=== PATIENT | female | born 1945 | race Caucasian/White ===

== ENCOUNTER 2018-10-21 20:41 | Inpatient (IN) ==
--- NOTE | 2018-10-21 21:04 | ED ---
HPI General Chief complaint: Fall Stated complaint: Fall / [facility] / tx [facility] Time Seen by Provider: 10/21/18 20:58 History of Present Illness HPI narrative: This is a 73-year-old female with history of blindness, hypertension, diabetes, coronary artery disease, on Plavix, was transported here from [facility] in [place] for admission to the trauma service. The patient reports that 2 days ago she was getting ready for bed, walking in her bedroom. She does not recall what happened but she reports that she woke up the next morning on the ground. She does not remember feeling dizzy or lightheaded or having any chest pain or breath. She does not recall tripping. She does not believe that she slept in her bed as the bed was made up the next morning. She reports that since then she has had some foggy sensation in her head, headaches as well as right-sided rib soreness. She was seen at [facility] today were she had CT imaging of brain as well as rib x-rays which revealed a subarachnoid hemorrhage as well as right-sided rib fractures. She was accepted in transfer by trauma surgeon Dr. Godinez. On my review of systems she is complaining of right-sided rib soreness. She is denying any headache. She does endorse some neck soreness. She is denying any back pain, shortness of breath, abdominal pain, nausea or vomiting, acute numbness or tingling or weakness in extremities. She has no other complaints at this time. Related Data Home Medications Medication Instructions Recorded Confirmed aspirin [Aspirin Low Dose] 81 mg PO DAILY 10/21/18 10/21/18 calcium carbonate [Calcium 600] 600 mg PO EVERY OTHER DAY 10/21/18 10/21/18 clopidogrel [Plavix] 75 mg PO DAILY 10/21/18 10/21/18 insulin aspart U-100 [Novolog 1 sliding scale dose SUBCUT UD 10/21/18 10/21/18 PenFill U-100 Insulin] isosorbide mononitrate 30 mg PO DAILY 10/21/18 10/21/18 latanoprost 1 drp OPHTHALMIC (EYE) QPM 10/21/18 10/21/18 levothyroxine [Synthroid] 75 mcg PO DAILY 10/21/18 10/21/18 metoprolol succinate 50 mg PO DAILY 10/21/18 10/21/18 tyqrzktt-[id number]-fungeyp fum 10/21/18 10/21/18 [Multi Vitamin] nitroglycerin [Nitrostat] 0.4 mg SUBLINGUAL Q5-15M PRN 10/21/18 10/21/18 ramipril 2.5 mg PO DAILY 10/21/18 10/21/18 ranitidine HCl 300 mg PO DAILY 10/21/18 10/21/18 simvastatin 40 mg PO QPM 10/21/18 10/21/18 timolol 1 drp OPHTHALMIC (EYE) BID 10/21/18 10/21/18 Allergies Allergy/AdvReac Type Severity Reaction Status Date / Time Sulfa (Sulfonamide Allergy allergy Verified 10/21/18 21:00 Antibiotics) Review of Systems ROS: all other systems reviewed are negative [facility] Medical History Medical History HTN (hypertension) (Acute) Hypothyroid (Acute) Type 1 diabetes (Acute) Surgical History Surgical History H/O heart artery stent (Acute) H/O tubal ligation (Acute) S/P triple vessel bypass (Acute) Family History Family History Other Medical history non-contributory Social History Social History Substance History: No History of Abuse Smoking Status: Never smoker How Often Do You Have a Drink Containing Alcohol: Monthly or less Recent Travel in [facility] within the Last 8 Weeks: No Recent Out of Country Travel within the Last 8 Weeks: No Immunization History Tetanus Immunization: <5 Years Exam Narrative Exam Narrative: GENERAL: Pleasant well-developed well-nourished female no acute distress. A cervical collar has been ordered and is being applied SKIN: Warm and dry. There is some right-sided periorbital facial ecchymosis. HEAD: Skin as noted above. Normocephalic. EYES: Left pupil deformity noted. Right corneal haziness noted. These are chronic. ENT: No nasal bleeding or discharge. Mucous membranes pink and moist. There is no tenderness to palpation of the facial bones. NECK: Trachea midline. No JVD. CARDIOVASCULAR: Regular rate and rhythm. No murmur appreciated. RESPIRATORY: No accessory muscle use. Clear to auscultation. Breath sounds equal bilaterally. GASTROINTESTINAL: Abdomen soft, non-tender, nondistended. Hepatic and splenic margins not palpable. MUSCULOSKELETAL: No obvious deformities. There is tenderness to palpation to the right lower rib cage as well as to the cervical spine. NEUROLOGICAL: Awake and alert. No obvious cranial nerve deficits. Motor grossly within normal limits. Normal speech. PSYCHIATRIC: Appropriate mood and affect; insight and judgment normal. Course Initial Documented Vital Signs Pulse Rate 64 10/21/18 20:54 Respiratory Rate 24 10/21/18 20:54 Blood Pressure 149/62 H 10/21/18 20:54 Pulse Oximetry 98 10/21/18 20:54 Last Documented Vital Signs Pulse Rate 61 10/22/18 07:12 Respiratory Rate 17 10/22/18 07:12 Blood Pressure 120/50 L 10/22/18 07:12 Pulse Oximetry 94 L 10/22/18 07:12 Medical Decision Making MDM Narrative Medical decision making narrative: The patient was placed on ECG monitoring pulse oximetry. IV established, lab work obtained, EKG ordered. I discussed with Dr. Godinez who is the accepting trauma surgeon. He is agreeable with obtaining CT imaging of the cervical spine as well as a repeat chest x-ray and a repeat CT of the brain. Neurosurgery consultation. I discussed with Dr Nguyen who would be happy to see the patient in consultation , recommends Keppra 500 mg twice a day for seizure prophylaxis. Agreeable with admission to the [facility]. I reviewed the patient's records from [facility], apparently the patient has been having intermittent hypoglycemic events since her insulin pump was discontinued during the late September hospitalization in [facility]. She is currently on NovoLog 4 times a week. Blood glucose 193 currently. 2300: At the end of my shift the patient was signed out to Dr. William to follow- up in the CT imaging prior to admission. I spoke to Dr. Blood regarding this patient's case after the CT scan of the head and neck were resulted. We discussed the patient's history, examination findings, and imaging results. The patient's chest x-ray at this facility revealed rib fractures that appeared to be old. The patient CT scan of the brain showed The CT scan of the brain showed senescent changes, mild to moderate small vessel ischemic white matter demyelinization, no acute intracranial abnormality, CT scan of the C-spine showed no acute fracture or subluxation. Degenerative spondylosis of the lower cervical spine is noted. Given the patient's possible syncope and hypoglycemic events, he recommended that the patient be admitted to the medical service and he cleared the patient from a trauma surgery standpoint. The patient's case including history, pertinent physical examination findings, and laboratory studies were discussed with Dr. Harrison, the hospitalist. It was agreed that the patient would be admitted to the hospitalist service. The patient's results were discussed with the patient, including the plan of care. I explained that further testing and/ or monitoring is indicated based on the patient's history, examination, and/ or laboratory findings. Therefore, I recommended admission for additional evaluation. The patient expressed understanding and was agreeable with this plan. The patient was admitted to the hospital in stable condition and sent to a bed under the care of the [facility] service. Medical Screen Exam Complete: Yes Emergency Medical Condition: Yes Differential Diagnosis Differential Diagnosis: Subarachnoid hemorrhage, rib fracture, pneumothorax, hemothorax, syncope, electrolyte abnormality, dehydration, seizure Lab Data Result diagrams: 10/21/18 21:14 10/21/18 21:14 Lab Results 10/21/18 10/21/18 10/21/18 Range/Units 21:14 21:14 21:14 WBC 7.5 (4.0-11.0) th/mm3 RBC 3.20 L (4.00-5.30) mil/mm3 Hgb 11.2 L (11.6-15.3) gm/dL Hct 33.3 L (35.0-46.0) % MCV 104.1 H (80.0-100.0) fL MCH 35.1 H (27.0-34.0) pg MCHC 33.7 (32.0-36.0) % RDW 13.1 (11.6-17.2) % Plt Count 348 (150-450) th/mm3 MPV 9.0 (7.0-11.0) fL Neut % (Auto) 69.6 (16.0-70.0) % Lymph % (Auto) 18.6 (9.0-44.0) % Sheridan % (Auto) 9.5 H (0.0-8.0) % Eos % (Auto) 1.5 (0.0-4.0) % Baso % (Auto) 0.8 (0.0-2.0) % Neut # (Auto) 5.2 (1.8-7.7) th/mm3 Lymph # (Auto) 1.4 (1.0-4.8) th/mm3 Sheridan # (Auto) 0.7 (0.0-0.9) th/mm3 Eos # (Auto) 0.1 (0.0-0.4) th/mm3 Baso # (Auto) 0.1 (0.0-0.2) th/mm3 WBC Differential . Differential Comment Auto diff final PT 10.0 (9.8-11.6) sec INR 1.0 Ratio APTT 25.4 (23.4-31.7) sec Sodium 133 L (136-145) meq/L Potassium 5.1 (3.5-5.1) meq/L Chloride 101 (98-107) meq/L Carbon Dioxide 24.9 (21.0-32.0) meq/L Anion Gap 7 (5-15) meq/L BUN 30 H (7-18) mg/dL Creatinine 1.28 H (0.50-1.00) mg/dL Estimated GFR 41 L (>89) mL/min POC Glucose (68-110) mg/dl Random Glucose 193 H (74-106) mg/dL Calcium 8.7 (8.5-10.1) mg/dL Total Bilirubin 0.3 (0.2-1.0) mg/dL AST 47 H (15-37) U/L ALT 47 (10-53) U/L Alkaline Phosphatase 75 (45-117) U/L Total Creatine Kinase 284 H (26-192) U/L CK-MB (CK-2) 10.4 H (0.5-3.6) ng/mL CK-MB (CK-2) % 3.7 (0.0-4.0) % Troponin I Less than 0.02 L (0.02-0.05) ng/mL Total Protein 7.5 (6.4-8.2) g/dL Albumin 3.3 L (3.4-5.0) g/dL Blood Type Blood Type Recheck Antibody Screen 10/21/18 10/21/18 10/22/18 Range/Units 21:14 21:23 02:51 WBC (4.0-11.0) th/mm3 RBC (4.00-5.30) mil/mm3 Hgb (11.6-15.3) gm/dL Hct (35.0-46.0) % MCV (80.0-100.0) fL MCH (27.0-34.0) pg MCHC (32.0-36.0) % RDW (11.6-17.2) % Plt Count (150-450) th/mm3 MPV (7.0-11.0) fL Neut % (Auto) (16.0-70.0) % Lymph % (Auto) (9.0-44.0) % Sheridan % (Auto) (0.0-8.0) % Eos % (Auto) (0.0-4.0) % Baso % (Auto) (0.0-2.0) % Neut # (Auto) (1.8-7.7) th/mm3 Lymph # (Auto) (1.0-4.8) th/mm3 Sheridan # (Auto) (0.0-0.9) th/mm3 Eos # (Auto) (0.0-0.4) th/mm3 Baso # (Auto) (0.0-0.2) th/mm3 WBC Differential Differential Comment PT (9.8-11.6) sec INR Ratio APTT (23.4-31.7) sec Sodium (136-145) meq/L Potassium (3.5-5.1) meq/L Chloride (98-107) meq/L Carbon Dioxide (21.0-32.0) meq/L Anion Gap (5-15) meq/L BUN (7-18) mg/dL Creatinine (0.50-1.00) mg/dL Estimated GFR (>89) mL/min POC Glucose 221 H (68-110) mg/dl Random Glucose (74-106) mg/dL Calcium (8.5-10.1) mg/dL Total Bilirubin (0.2-1.0) mg/dL AST (15-37) U/L ALT (10-53) U/L Alkaline Phosphatase (45-117) U/L Total Creatine Kinase 194 H (26-192) U/L CK-MB (CK-2) 6.5 H (0.5-3.6) ng/mL CK-MB (CK-2) % 3.4 (0.0-4.0) % Troponin I Less than 0.02 L (0.02-0.05) ng/mL Total Protein (6.4-8.2) g/dL Albumin (3.4-5.0) g/dL Blood Type O Positive Blood Type Recheck Required Antibody Screen Negative 10/22/18 Range/Units 04:24 WBC (4.0-11.0) th/mm3 RBC (4.00-5.30) mil/mm3 Hgb (11.6-15.3) gm/dL Hct (35.0-46.0) % MCV (80.0-100.0) fL MCH (27.0-34.0) pg MCHC (32.0-36.0) % RDW (11.6-17.2) % Plt Count (150-450) th/mm3 MPV (7.0-11.0) fL Neut % (Auto) (16.0-70.0) % Lymph % (Auto) (9.0-44.0) % Sheridan % (Auto) (0.0-8.0) % Eos % (Auto) (0.0-4.0) % Baso % (Auto) (0.0-2.0) % Neut # (Auto) (1.8-7.7) th/mm3 Lymph # (Auto) (1.0-4.8) th/mm3 Sheridan # (Auto) (0.0-0.9) th/mm3 Eos # (Auto) (0.0-0.4) th/mm3 Baso # (Auto) (0.0-0.2) th/mm3 WBC Differential Differential Comment PT (9.8-11.6) sec INR Ratio APTT (23.4-31.7) sec Sodium (136-145) meq/L Potassium (3.5-5.1) meq/L Chloride (98-107) meq/L Carbon Dioxide (21.0-32.0) meq/L Anion Gap (5-15) meq/L BUN (7-18) mg/dL Creatinine (0.50-1.00) mg/dL Estimated GFR (>89) mL/min POC Glucose 315 H (68-110) mg/dl Random Glucose (74-106) mg/dL Calcium (8.5-10.1) mg/dL Total Bilirubin (0.2-1.0) mg/dL AST (15-37) U/L ALT (10-53) U/L Alkaline Phosphatase (45-117) U/L Total Creatine Kinase (26-192) U/L CK-MB (CK-2) (0.5-3.6) ng/mL CK-MB (CK-2) % (0.0-4.0) % Troponin I (0.02-0.05) ng/mL Total Protein (6.4-8.2) g/dL Albumin (3.4-5.0) g/dL Blood Type Blood Type Recheck Antibody Screen Imaging Data Radiologist's impression: Cervical Spine CT 10/21/18 21:10 CONCLUSION: 1. No acute fracture or subluxation. 2. Degenerative spondylosis of the lower cervical spine. Chest X-Ray 10/21/18 21:10 CONCLUSION: Mild bibasilar atelectasis. Head CT 10/21/18 21:10 CONCLUSION: 1. Senescent changes with mild to moderate small vessel ischemic white matter demyelination. 2. No acute intracranial abnormality. . Discharge Plan Discharge Disposition Patient Disposition: ED Admit(ED Internal Use Only) Discharge Condition Condition: Stable Discharge Order Discharge Orders: ED Use Only Admit Order (Routine); Ordered 10/22/18 Ordered By: Yolanda William Discharge Details Diagnosis: Subarachnoid hemorrhage, Fracture, ribs, Syncope, Hypoglycemia Physicians Team ED Provider: Yolanda William ED Midlevel Provider: Sunil Peña Primary Care Provider: Primary Care Emerald Ralph Attending Provider: Casper Currie Other Providers: Bryce Nguyen Interventions Interventions: Vital Signs Last Done: 10/22/18 06:00 Status ED Status: Admitted Observation Patient
[2018-10-21] MEDS ORDERED: Morphine Sulfate Inj 2 MG/ML Vial IV.PUSH ONE (21:37)
[2018-10-21 21:41] LABS: Baso # (Auto) 0.1 th/mm3 (0.0-0.2); Baso % (Auto) 0.8 % (0.0-2.0); Eos # (Auto) 0.1 th/mm3 (0.0-0.4); Eos % (Auto) 1.5 % (0.0-4.0); Hematocrit 33.3 % (35.0-46.0); Hemoglobin 11.2 gm/dL (11.6-15.3); Lymph # (Auto) 1.4 th/mm3 (1.0-4.8); Lymph % (Auto) 18.6 % (9.0-44.0); Mean Corpuscular HGB Conc 33.7 % (32.0-36.0); Mean Corpuscular Hemoglobin 35.1 pg (27.0-34.0); Mean Corpuscular Volume 104.1 fL (80.0-100.0); Mono # (Auto) 0.7 th/mm3 (0.0-0.9); Mono % (Auto) 9.5 % (0.0-8.0); Neut # (Auto) 5.2 th/mm3 (1.8-7.7); Neut % (Auto) 69.6 % (16.0-70.0); Platelet Count 348 th/mm3 (150-450); Red Cell Distribution Width 13.1 % (11.6-17.2); White Blood Count 7.5 th/mm3 (4.0-11.0)
--- NOTE | 2018-10-21 21:44 | XR ---
EXAM DATE: 10/21/2018 9:39 PM EST AGE/SEX: 73 years / Female INDICATIONS: Fall 2 days ago, rib pain and chest pain. CLINICAL DATA: This is the patient's initial encounter. Patient reports that signs and symptoms have been present for 2 days and indicates a pain score of 10/10. MEDICAL/SURGICAL HISTORY: None. None. COMPARISON: No prior exams available for comparison. FINDINGS: Mild atelectasis seen of both lung bases. No pleural effusion or pneumothorax demonstrated. Heart size within normal limits. Patient has had previous median sternotomy. Several nonacute appeari ng right rib fractures are demonstrated. I don't clearly see an acute rib fracture. CONCLUSION: Mild bibasilar atelectasis. Electronically signed by: Domingo Meeks MD Board Certified Radiologist 10/21/2018 9:42 PM EST
[2018-10-21] MEDS ORDERED: Morphine Inj 4 MG/ML Vial IV.PUSH ONE (21:45)
[2018-10-21 21:55] LABS: Activated Partial Thrombo Time 25.4 sec (23.4-31.7); Albumin 3.3 g/dL (3.4-5.0); Anion Gap 7 meq/L (5-15); Aspartate Aminotransferase 47 U/L (15-37); Blood Urea Nitrogen 30 mg/dL (7-18); Calcium 8.7 mg/dL (8.5-10.1); Carbon Dioxide 24.9 meq/L (21.0-32.0); Chloride 101 meq/L (98-107); Glomerular Filtration Rate 41 mL/min (>89); Glucose,Random 193 mg/dL (74-106); Potassium 5.1 meq/L (3.5-5.1); Sodium 133 meq/L (136-145)
[2018-10-21 21:57] LABS: Alanine Aminotransferase 47 U/L (10-53)
[2018-10-21] MEDS ORDERED: levETIRAcetam 500 MG Tablet PO ONE (21:59)
[2018-10-21 22:00] LABS: Alkaline Phosphatase 75 U/L (45-117); Creatine Kinase 284 U/L (26-192); Total Protein 7.5 g/dL (6.4-8.2)
[2018-10-21 22:12] LABS: CKMB Percent 3.7 % (0.0-4.0); Creatine Kinase MB 10.4 ng/mL (0.5-3.6)
[2018-10-21] MEDS ORDERED: Sodium Chlor 0.9% Inj 500 ML IV.SIG SCH (23:00)
--- NOTE | 2018-10-21 23:52 | CT ---
EXAM DATE: 10/21/2018 11:42 PM EST AGE/SEX: 73 years / Female INDICATIONS: Head pain post fall two days. CLINICAL DATA: This is the patient's initial encounter. Patient reports that signs and symptoms have been present for 1 day and indicates a pain score of 5/10. MEDICAL/SURGICAL HISTORY: . CABG. RADIATION DOSE: 49.61 CTDI (mGy) COMPARISON: No prior exams available for comparison. TECHNIQUE: CT of the head without contrast. Using automated exposure control and adjustment of the mA and/or kV according to patient size, radiation dose was kept as low as reasonably achievable to ob tain optimal diagnostic quality images. DICOM format image data is available electronically for revi ew and comparison. FINDINGS: Cerebrum: Mild diffuse cerebral volume loss. The ventricles are normal for age. Mild to moderate per iventricular white matter hypodensities. No evidence of midline shift, mass lesion, hemorrhage or acu te infarction. No extraaxial fluid collections are seen. Posterior Fossa: The cerebellum and brainstem are intact. The 4th ventricle is midline. The cerebe llopontine angle is unremarkable. Extracranial: The visualized portion of the orbits is intact. Skull: The calvaria is intact. No evidence of skull fracture. CONCLUSION: 1. Senescent changes with mild to moderate small vessel ischemic white matter demyelination. 2. No acute intracranial abnormality. . Electronically signed by: Jr Simpson MD Board Certified Radiologist 10/21/2018 11:51 PM MONTRELL Gordillo
--- NOTE | 2018-10-21 23:54 | CT ---
EXAM DATE: 10/21/2018 11:42 PM EST AGE/SEX: 73 years / Female INDICATIONS: Head pain post fall two days ago. CLINICAL DATA: This is the patient's initial encounter. Patient reports that signs and symptoms have been present for 1 day and indicates a pain score of 5/10. MEDICAL/SURGICAL HISTORY: . CABG. RADIATION DOSE: 42.61 CTDI (mGy) COMPARISON: No prior exams available for comparison. TECHNIQUE: Contiguous axial images were obtained using helical multirow detector technique. The vol umetric data was post-processed with multiplanar reconstruction in oblique axial, sagittal, and coron al planes. Using automated exposure control and adjustment of the mA and/or kV according to patient s ize, radiation dose was kept as low as reasonably achievable to obtain optimal diagnostic quality faheem ges. DICOM format image data is available electronically for review and comparison. FINDINGS: OSSEOUS STRUCTURES: Vertebral body heights are maintained. Osseous structures are intact without evid ence for acute bony fracture. Dens is intact. ALIGNMENT: Sagittal alignment is maintained. There is a normal C1-2 relationship. Facets are normal ly aligned. SOFT TISSUES: There is no significant prevertebral soft tissue hematoma. No significant cervical bev nopathy or gross mass. The thyroid appears unremarkable. Visualized lung apices are clear without pn eumothorax. ADDITIONAL FINDINGS: Multilevel degenerative spondylosis of the lower cervical spine most notably at C5-6 and C6-7 with disc space narrowing and disc osteophytes. Bony central canal is patent. Mild ely ateral bony neural foraminal narrowing at C6-7. Multilevel facet hypertrophy. CONCLUSION: 1. No acute fracture or subluxation. 2. Degenerative spondylosis of the lower cervical spine. Electronically signed by: Jr Simpson MD Board Certified Radiologist 10/21/2018 11:53 PM MONTRELL Gordillo
[2018-10-22] MEDS ORDERED: Bisacodyl 10 MG Supp RECTAL PRN (02:15)
--- NOTE | 2018-10-22 02:26 | P.HPIM ---
History of Present Illness Service: [facility] Primary Care Physician: No Primary Care Physician Chief Complaint: [facility] History of Present Illness: 73-year-old female with a history of blindness, hypertension, diabetes type 1, CAD on Plavix was a transfer from [facility] in [place] for admission as a trauma that was accepted by Dr. Wynn. When patient arrived she was declared to not be a trauma and admitted to [facility]. Patient states she fell 2 days ago when she was getting ready for bed, and woke up on the ground. She denies any dizziness, headaches, chest pain or shortness of breath prior to the fall she states she has been having episodes of hypoglycemia for some time and states she goes very low and then very high. She doses based on a sliding scale and depending on the carbohydrates she consumes. Last year she had an insulin pump that was removed due to hypoglycemia episodes. She has an appointment on Sunday with a new folding machine tender for her diabetes. She states today she was out with her brother when she became confused and had trouble finding words. She is currently alert and oriented but states she still has times where she has trouble finding her words. She denies any weakness in any extremities. No chest pain or shortness of breath noted she is complaining of constant throbbing right-sided pain to her ribs. X-rays for a hospital shows that she has right-sided rib fractures. CT of the head was also done at [facility] which showed a subarachnoid hemorrhage although a CT repeated in our ER that does not show any hemorrhage. Review of Systems Review of Systems: all other systems reviewed are negative [facility] Medical History Medical History HTN (hypertension) (Acute) Hypothyroid (Acute) Type 1 diabetes (Acute) Surgical History Surgical History H/O heart artery stent (Acute) H/O tubal ligation (Acute) S/P triple vessel bypass (Acute) Family History Family History Other Medical history non-contributory Social History Social History Substance History: No History of Abuse Smoking Status: Never smoker How Often Do You Have a Drink Containing Alcohol: Monthly or less Recent Travel in [facility] within the Last 8 Weeks: No Recent Out of Country Travel within the Last 8 Weeks: No Immunization History Tetanus Immunization: <5 Years Medications and Allergies Allergies Allergy/AdvReac Type Severity Reaction Status Date / Time Sulfa (Sulfonamide Allergy allergy Verified 10/21/18 21:00 Antibiotics) Home Medications Medication Instructions Recorded Confirmed Type aspirin [Aspirin Low Dose] 81 mg PO DAILY 10/21/18 10/21/18 History calcium carbonate [Calcium 600] 600 mg PO EVERY OTHER DAY 10/21/18 10/21/18 History clopidogrel [Plavix] 75 mg PO DAILY 10/21/18 10/21/18 History insulin aspart U-100 [Novolog 1 sliding scale dose SUBCUT UD 10/21/18 10/21/18 History PenFill U-100 Insulin] isosorbide mononitrate 30 mg PO DAILY 10/21/18 10/21/18 History latanoprost 1 drp OPHTHALMIC (EYE) QPM 10/21/18 10/21/18 History levothyroxine [Synthroid] 75 mcg PO DAILY 10/21/18 10/21/18 History metoprolol succinate 50 mg PO DAILY 10/21/18 10/21/18 History [id number] fum 10/21/18 10/21/18 History [Multi Vitamin] nitroglycerin [Nitrostat] 0.4 mg SUBLINGUAL Q5-15M PRN 10/21/18 10/21/18 History ramipril 2.5 mg PO DAILY 10/21/18 10/21/18 History ranitidine HCl 300 mg PO DAILY 10/21/18 10/21/18 History simvastatin 40 mg PO QPM 10/21/18 10/21/18 History timolol 1 drp OPHTHALMIC (EYE) BID 10/21/18 10/21/18 History Active Medications: Active Medications Sodium Chloride (Ns Flush) 2 ml IV.FLUSH PRN PRN PRN Reason: FLUSH AFTER USING IV ACCESS Physical Exam Vital signs: Vital Signs 10/21/18 20:54 10/21/18 21:00 10/21/18 23:20 Pulse Rate 64 64 62 Respiratory Rate 24 24 22 Blood Pressure 149/62 H 149/62 H 157/65 H Pulse Oximetry 98 98 98 10/22/18 02:19 Pulse Rate 58 L Respiratory Rate 26 H Blood Pressure 147/61 H Pulse Oximetry 99 Intake & Output 10/21/18 10/21/18 10/22/18 06:59 18:59 06:59 Intake Total 500 / 500 Balance 500 / 500 Weight 54.885 kg Intake: IV 500 / 500 NS Inj 500 ML @ 1000 mls/hr IV. 500 / 500 SIG BOLUS [facility] Rx#:[id number] Narrative: GENERAL: well nourished patient in no acute distress SKIN: Warm and dry. right eye ecchymotic HEAD: Normocephalic. EYES: No scleral icterus. No injection or drainage. Pupils PERRLA NECK: Supple, trachea midline. No JVD or lymphadenopathy. CARDIOVASCULAR: Regular rate and rhythm without murmurs, gallops, or rubs. RESPIRATORY: Breath sounds equal bilaterally. No accessory muscle use. GASTROINTESTINAL: Abdomen soft, non-tender, nondistended. MUSCULOSKELETAL: No cyanosis, or edema. No weakness. Neurological: A&O x3, moves all follows commands, no confusion. Results Labs CBC & Chem 7: 10/21/18 21:14 10/21/18 21:14 Imaging Impressions Cervical Spine CT 10/21/18 21:10 CONCLUSION: 1. No acute fracture or subluxation. 2. Degenerative spondylosis of the lower cervical spine. Chest X-Ray 10/21/18 21:10 CONCLUSION: Mild bibasilar atelectasis. Head CT 10/21/18 21:10 CONCLUSION: 1. Senescent changes with mild to moderate small vessel ischemic white matter demyelination. 2. No acute intracranial abnormality. . Caprini VTE Risk Assessment Caprini VTE Risk Assessment: Moderate/High Risk (score >= 2) Caprini Risk Assessment Model: Point Value = 1 Point Value = 2 Point Value = 3 Point Value = 5 Age 41-60 Minor surgery BMI > 25 kg/m2 Swollen legs Varicose veins or History of unexplained or recurrent spontaneous Oral contraceptives or hormone replacement Sepsis (< 1 month) Serious lung disease, including pneumonia (< 1 month) Abnormal pulmonary function Acute myocardial infarction Congestive heart failure (< 1 month) History of inflammatory bowel disease Medical patient at bed rest Age 61-74 Arthroscopic surgery Major open surgery (> 45 min) Laparoscopic surgery (> 45 min) Malignancy Confined to bed (> 72 hours) Immobilizing plaster cast Central venous access Age >= 75 History of VTE Family history of VTE Factor V Leiden Prothrombin [id number] Lupus anticoagulant Anticardiolipin antibodies Elevated serum homocysteine Heparin-induced thrombocytopenia Other congenital or acquired thrombophilia Stroke (< 1 month) Elective arthroplasty Hip, pelvis, or leg fracture Acute spinal cord injury (< 1 month) Prophylaxis Regimen: Total Risk Factor Score Risk Level Prophylaxis Regimen 0-1 Low Early ambulation 2 Moderate Order ONE of the following: *Sequential Compression Device (SCD) *Heparin 5000 units SQ BID 3-4 Higher Order ONE of the following medications: *Heparin 5000 units SQ TID *Enoxaparin/Lovenox 40 mg SQ daily (WT < 150 kg, CrCl > 30 mL/min) *Enoxaparin/Lovenox 30 mg SQ daily (WT < 150 kg, CrCl > 10-29 mL/min) *Enoxaparin/Lovenox 30 mg SQ BID (WT < 150 kg, CrCl > 30 mL/min) AND/OR *Sequential Compression Device (SCD) 5 or more Highest Order ONE of the following medications: *Heparin 5000 units SQ TID (Preferred with Epidurals) *Enoxaparin/Lovenox 40 mg SQ daily (WT < 150 kg, CrCl > 30 mL/min) *Enoxaparin/Lovenox 30 mg SQ daily (WT < 150 kg, CrCl > 10-29 mL/min) *Enoxaparin/Lovenox 30 mg SQ BID (WT < 150 kg, CrCl > 30 mL/min) AND *Sequential Compression Device (SCD) Assessment and Plan Plan 73-year-old female with a history of blindness, hypertension, diabetes type 1, CAD on Plavix was a transfer from [facility] in [place] for admission as a trauma s/p fall. Syncope, likely secondary to Hypoglycemia in a type 1 diabetic -2d echo ordered -Accu checks Q4h -Patient will need follow up with endocrine, hopefully can keep her Sunday appointment Fall, Questionable SAH Head CT reviewed and shows Senescent changes with mild to moderate small vessel ischemic white matter demyelination -Consult neuro surgery for evaluation -neuro checks -PT eval -Resume asa and plavix if ok with neurosurgery Hypertension, chronic -Resume home medications -Monitor vitals Hypothyroid, chronic -Resume home medications DVT prophylaxis: SCDs
[2018-10-22] MEDS: Sod Chloride 0.9% Inj 1,000 ML IV.CONT SCH ×3 (03:09→23:43)
[2018-10-22] MEDS: Acetaminophen 325 MG Tablet PO PRN ×2 (03:12→13:02)
[2018-10-22 03:15] LABS: Creatine Kinase 194 U/L (26-192)
[2018-10-22 03:28] LABS: CKMB Percent 3.4 % (0.0-4.0); Creatine Kinase MB 6.5 ng/mL (0.5-3.6)
[2018-10-22] MEDS ORDERED: Dextrose 50% in Water 50 ML Vial IV.PUSH PRN (04:58)
[2018-10-22] MEDS: Levothyroxine 75 MCG Tablet PO SCH (07:12)
[2018-10-22] MEDS: Insulin NovoLOG Aspart Correctional Sugar Inj SQ SCH ×4 (08:44→23:42)
[2018-10-22] MEDS: Famotidine 20 MG Tablet PO SCH ×2 (08:45→23:42)
[2018-10-22] MEDS: Isosorbide Mononitrate 30 MG ER 24HR Tablet (Imdur) PO SCH (10:19)
--- NOTE | 2018-10-22 11:35 | MB ---
cc: Bryce Nguyen MD DATE: 10/22/2018 Report of an initial comprehensive floor inpatient neurosurgical consultation. The patient was interviewed, examined, the documentation, laboratory evaluation, and imaging were reviewed. CHIEF COMPLAINT: Fall and a head injury. HISTORY OF PRESENT ILLNESS: This is a 73-year-old white female who apparently was a transfer from [facility] in [place] for admission as a trauma. When she arrived here at [place] she was cleared not to be a trauma and admitted to the hospitalist service. In any case, the patient states that she fell 2 days ago and apparently suffered a syncopal episode. She denies dizziness or headaches, chest pain or shortness of breath prior to the fall. She states that she has been having episodes of hypoglycemia. In any case, she was having some trouble with confusion and word finding as well as some right-sided rib pain. Because of this, her family brought her into the emergency department at [facility] in [place]. She had a CT scan of the head done without contrast there, which apparently showed a small subarachnoid hemorrhage. X-rays there revealed rib fractures on the right, she was transferred to [place]. She has undergone a followup CT scan of the head done without contrast here which reveals no sign of subarachnoid hemorrhage, nor hydrocephalus, nor pneumocephalus, nor skull fracture. She has mild atrophy. She also underwent a CT scan of the cervical spine done without contrast, which reveals spondylitic changes without fracture or subluxation or significant stenosis. PAST MEDICAL HISTORY: Remarkable for history of hypertension, hypothyroidism, type 1 diabetes, heart disease with coronary artery disease. PAST SURGICAL HISTORY: Remarkable for cardiac stenting and tubal ligation as well as coronary bypass graft surgery and a hysterectomy. MEDICATIONS: Include: 1. Nitroglycerin. 2. Isosorbide. 3. Aspirin. 4. Ranitidine. 5. Metoprolol. 6. Calcium carbonate . 7. Timolol. 8. Latanoprost. 9. Ramipril. 10. Insulin. 11. Simvastatin. 12. Levothyroxine. 13. Clopidogrel. 14. Multivitamins. ALLERGIES: SHE HAS ALLERGIES TO SULFA. SOCIAL HISTORY: She is retired. She is independent. She denies a history of illicit drug use, ethanol abuse or cigarette smoking. FAMILY HISTORY: Remarkable for history of heart disease and diabetes. REVIEW OF SYSTEMS: The patient denies any weight loss. She denies any fever, chills or night sweats. She denies any headaches. 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 She denies any change in her thinking or memory or speech or swallowing or chest pain or shortness of breath or abdominal pain or change in bowel or bladder function characteristics of urine or stool. She denies any rash, itching, or easy bruising. She denies any anxiety or depression. NEUROLOGICAL EXAMINATION: VITAL SIGNS: Temperature was 98, heart rate 67, blood pressure was 143/57, her respiratory rate is 16, her SpO2 is 98% on room air. MENTAL STATUS: Testing finds her to be awake and alert. She is oriented x 3. Cognitive function is grossly intact. Her speech is fluent. Cranial nerve testing II-XII is grossly intact. Visual sharpe are full to confrontation. Extraocular movements full without diplopia or nystagmus. Funduscopic examination was deferred. Motor examination found bulk and tone to be within normal limits. Power testing was 5+/5+ throughout. Sensory examination reveals intact to light touch and position throughout. Deep tendon reflexes were 1-2+ and symmetric, and diminished in her lower extremities. INTEGUMENTARY: There are no pathological reflexes noted. Cerebellar testing found no dysmetria. Fine coordination was grossly intact. There was no gross truncal nor appendicular ataxia noted. Gait, Romberg and tandem were not tested. Her head was normocephalic. External auditory canals clear. There was no sign of CSF otorrhea or rhinorrhea. There was some ecchymosis over the left periorbital region. Cervical spine evaluation revealed relatively full range of motion without real pain to palpation. There was no real pain to palpation over the thoracic nor lumbosacral this. FINAL IMPRESSION: The patient has suffered a syncopal episode resulting in a fall and a mild closed blunt head injury with a traumatic brain injury resulting in a mild subarachnoid hemorrhage which now has resolved. There is no sign of a spinal injury. The patient's Sweetser coma scale remains 15, and she is now 48 hours following her head injury. RECOMMENDATIONS AND PLAN: From a neurosurgical perspective, she should continue the present management and a conservative neurosurgical approach is warranted. In fact, there is no indication for further neurosurgical evaluation or treatment. I believe the Keppra that was started can be discontinued due to the subarachnoid hemorrhage resolving on serial CT scans. At this point, the patient needs to be mobilized in physical therapy and occupational therapy needs to be consulted for evaluation and treatment. Neurosurgery will sign off the case. Neurosurgical followup is not really needed unless further problems develop. Please reconsult as needed. I have discussed this all with the patient. She understands and is agreeable. Thank you for allowing me to participate in the care of this patient. MD JAMES Polanco/na , 10:50 AM , 11:05 AM
[2018-10-22] MEDS: Timolol 0.5% Drops 5 ML Bottle EACH EYE SCH ×2 (11:39→23:42)
[2018-10-22] MEDS: Ramipril 2.5 MG Capsule PO SCH (11:39)
[2018-10-22 12:05] LABS: Baso % (Auto) 0.6 % (0.0-2.0); Eos # (Auto) 0.1 th/mm3 (0.0-0.4); Eos % (Auto) 1.7 % (0.0-4.0); Hematocrit 33.2 % (35.0-46.0); Hemoglobin 11.2 gm/dL (11.6-15.3); Lymph # (Auto) 1.2 th/mm3 (1.0-4.8); Mean Corpuscular HGB Conc 33.8 % (32.0-36.0); Mean Corpuscular Hemoglobin 35.6 pg (27.0-34.0); Mean Corpuscular Volume 105.3 fL (80.0-100.0); Mean Platelet Volume 8.9 fL (7.0-11.0); Mono # (Auto) 0.8 th/mm3 (0.0-0.9); Mono % (Auto) 13.9 % (0.0-8.0); Neut # (Auto) 3.7 th/mm3 (1.8-7.7); Neut % (Auto) 63.8 % (16.0-70.0); Platelet Count 314 th/mm3 (150-450); Red Blood Count 3.15 mil/mm3 (4.00-5.30); White Blood Count 5.8 th/mm3 (4.0-11.0)
[2018-10-22 12:27] LABS: Anion Gap 5 meq/L (5-15); Blood Urea Nitrogen 18 mg/dL (7-18); Calcium 8.4 mg/dL (8.5-10.1); Carbon Dioxide 29.1 meq/L (21.0-32.0); Chloride 106 meq/L (98-107); Glomerular Filtration Rate 44 mL/min (>89); Glucose,Random 170 mg/dL (74-106); Potassium 4.9 meq/L (3.5-5.1); Sodium 140 meq/L (136-145)
[2018-10-22 12:29] LABS: Creatine Kinase 140 U/L (26-192)
[2018-10-22] MEDS ORDERED: Latanoprost 0.005% Opth Drops 2.5 ML Bottle EACH EYE SCH (21:00)
--- NOTE | 2018-10-23 00:58 | ECG ---
Date Performed: 10/22/2018 Time Performed: 02:52:06 PTAGE: 73 years EKG: Sinus rhythm MODERATE ST DEPRESSION ABNORMAL ECG PREVIOUS TRACING : 10/21/2018 21.47 Compared to previous tracing, now with moderate ST depress ion DOCTOR: Fabrice Castillo Interpretating Date/Time 10/23/2018 00:57:17
--- NOTE | 2018-10-23 01:08 | ECG ---
Date Performed: 10/21/2018 Time Performed: 21:47:43 PTAGE: 73 years EKG: Sinus rhythm WITH SINUS ARRHYTHMIA NORMAL ECG INTERPRETATION BASED ON A DEFAULT AGE OF 38 YEARS NO PREVIOUS TRACING DOCTOR: Fabrice Castillo Interpretating Date/Time 10/23/2018 01:07:38
[2018-10-23] MEDS: Insulin NovoLOG Aspart Correctional Sugar Inj SQ SCH ×3 (04:12→14:10)
[2018-10-23] MEDS: Levothyroxine 75 MCG Tablet PO SCH (05:54)
--- NOTE | 2018-10-23 09:02 | P.PNIM ---
Subjective Interval history: no acute events overnight. Patient feeling well this morning. Physical Exam Vital signs: Vital Signs 10/22/18 12:00 10/22/18 16:10 10/22/18 20:00 Temperature 97.6 F 97.2 F L 97.6 F Pulse Rate 54 L 51 L Respiratory Rate 20 54 H 18 Blood Pressure 144/54 H 152/53 H 140/44 L Pulse Oximetry 95 100 100 10/23/18 00:00 10/23/18 04:00 10/23/18 08:00 Temperature 97.6 F 98.4 F 98.8 F Pulse Rate 55 L 65 66 Respiratory Rate 16 16 16 Blood Pressure 149/74 H 121/41 L 157/54 H Pulse Oximetry 100 95 98 Intake & Output 10/22/18 10/23/18 10/23/18 18:59 06:59 18:59 Intake Total 1000 / 1000 Output Total 800 / 800 Balance 200 / 200 Intake: IV 1000 / 1000 NS Inj 1,000 ML @ 100 mls/hr IV 1000 / 1000 .CONT .Q10H [facility] Rx#:[id number] Output: Urine 800 / 800 Other: # Voids 1 2 Narrative: GENERAL: well nourished patient in no acute distress SKIN: Warm and dry. right eye ecchymotic HEAD: Normocephalic. EYES: No scleral icterus. No injection or drainage. Pupils PERRLA NECK: Supple, trachea midline. No JVD or lymphadenopathy. CARDIOVASCULAR: Regular rate and rhythm without murmurs, gallops, or rubs. RESPIRATORY: Breath sounds equal bilaterally. No accessory muscle use. GASTROINTESTINAL: Abdomen soft, non-tender, nondistended. MUSCULOSKELETAL: No cyanosis, or edema. No weakness. Neurological: A&O x3, moves all follows commands, no confusion. Results Labs CBC & Chem 7: 10/22/18 11:15 10/22/18 11:15 Assessment and Plan Plan 73-year-old female with a history of blindness, hypertension, diabetes type 1, CAD on Plavix was a transfer from [facility] in [place] for admission as a trauma s/p fall. Syncope- unclear etiology, arrhythmia a possibility. patient was not hypoglycemic on presentation. ECG unremarkable, CT head negative, monitored unremarkably on telemetry. she will likely need an event monitor and prefers to follow up with her drafter marine in [place] for this. -2d echo-pending. Fall, Questionable SAH Head CT reviewed and shows Senescent changes with mild to moderate small vessel ischemic white matter demyelination neurosurg consult-no surgical intervention needed given resolution of bleed. Patient will be for discharge today if there are no acute findings on ECHO. Progress Note: Quality VTE Deep Vein Thrombosis/Pulmonary Embolism Present on Admission: No
--- NOTE | 2018-10-23 09:12 | P.DS ---
DS: Providers Date of admission: 10/22/18 02:15 Primary care physician: No Primary Care Physician Consults: 10/21/18 22:10 Consult to Neurosurgery Routine Consulting Provider: Bryce Nguyen Preferred Dealer Relationship Manager:: Bryce Nguyen Reason for Consultation: Traumatic subarachnoid hemorrhage. Do not page he is aware. Spoke with:: ADDED TO LIST - COURTESY CALL IN AM Date Notified:: 10/22/18 Time Notified:: 01:30 Ordering Provider: GUANAKITO Brief History from admission: 73-year-old female with a history of blindness, hypertension, diabetes type 1, CAD on Plavix was a transfer from [facility] in [place] for admission as a trauma that was accepted by Dr. Wynn. When patient arrived she was declared to not be a trauma and admitted to [facility]. Patient states she fell 2 days ago when she was getting ready for bed, and woke up on the ground. She denies any dizziness, headaches, chest pain or shortness of breath prior to the fall she states she has been having episodes of hypoglycemia for some time and states she goes very low and then very high. She doses based on a sliding scale and depending on the carbohydrates she consumes. Last year she had an insulin pump that was removed due to hypoglycemia episodes. She has an appointment on Sunday with a new telemarketing sales representative for her diabetes. She states today she was out with her brother when she became confused and had trouble finding words. She is currently alert and oriented but states she still has times where she has trouble finding her words. She denies any weakness in any extremities. No chest pain or shortness of breath noted she is complaining of constant throbbing right-sided pain to her ribs. X-rays for [facility] shows that she has right-sided rib fractures. CT of the head was also done at [facility] which showed a subarachnoid hemorrhage although a CT repeated in our ER that does not show any hemorrhage. DS: Summary ISSUES ADDRESSED DURING THIS HOSPITALIZATION: 1.Syncope-etiology unclear, concern for arrhythmia since she did not report hypoglycemia prior to episode. ECG and troponin were negative, she was monitored uneventfully on telemetry over 24 hrs. She was not orthostatic. 2 D ECHO Patient should be considered for a cardiac event monitor on discharge, she prefers to discuss this with her laser beam cutter in [place]. She has been advised to follow up in 1-2 weeks. 2. Fall, Subarachnoid hemorrhage: Head CT reviewed and shows Senescent changes with mild to moderate small vessel ischemic white matter demyelination neurosurg consulted-no surgical intervention needed given resolution of bleed. patient was resumed on her usual ASA/Plavix doses. 3.Uncontrolled DM 2-patient is on a sliding scale insulin at home.Blood glucose was in the 300's range on admission. She was maintained on sliding scale while here and her blood glucose better controlled. She has an appointment with her telemarketing sales representative today 10/23/18 which she plans to keep. All her usual medication were continued. Time Spent with Patient Total time spent providing and/or coordinating discharge services: Quality: VTE Deep Vein Thrombosis/Pulmonary Embolism Present on Admission: No Results Labs on day of discharge: Labs from last 24 hours 10/23/18 10/23/18 10/22/18 08:12 03:22 23:23 WBC RBC Hgb Hct MCV MCH MCHC RDW Plt Count MPV Neut % (Auto) Lymph % (Auto) Hamilton % (Auto) Eos % (Auto) Baso % (Auto) Neut # (Auto) Lymph # (Auto) Hamilton # (Auto) Eos # (Auto) Baso # (Auto) WBC Differential Differential Comment Sodium Potassium Chloride Carbon Dioxide Anion Gap BUN Creatinine Estimated GFR POC Glucose 171 H 173 H 154 H Random Glucose Calcium Total Creatine Kinase Troponin I 10/22/18 10/22/18 10/22/18 16:43 12:51 11:15 WBC RBC Hgb Hct MCV MCH MCHC RDW Plt Count MPV Neut % (Auto) Lymph % (Auto) Hamilton % (Auto) Eos % (Auto) Baso % (Auto) Neut # (Auto) Lymph # (Auto) Hamilton # (Auto) Eos # (Auto) Baso # (Auto) WBC Differential Differential Comment Sodium 140 Potassium 4.9 Chloride 106 Carbon Dioxide 29.1 Anion Gap 5 BUN 18 Creatinine 1.19 H Estimated GFR 44 L POC Glucose 256 H 201 H Random Glucose 170 H Calcium 8.4 L Total Creatine Kinase 140 Troponin I Less than 0.02 L 10/22/18 11:15 WBC 5.8 RBC 3.15 L Hgb 11.2 L Hct 33.2 L MCV 105.3 H MCH 35.6 H MCHC 33.8 RDW 13.0 Plt Count 314 MPV 8.9 Neut % (Auto) 63.8 Lymph % (Auto) 20.0 Hamilton % (Auto) 13.9 H Eos % (Auto) 1.7 Baso % (Auto) 0.6 Neut # (Auto) 3.7 Lymph # (Auto) 1.2 Hamilton # (Auto) 0.8 Eos # (Auto) 0.1 Baso # (Auto) 0.0 WBC Differential . Differential Comment Auto diff final Sodium Potassium Chloride Carbon Dioxide Anion Gap BUN Creatinine Estimated GFR POC Glucose Random Glucose Calcium Total Creatine Kinase Troponin I Impressions ITS Impressions Cervical Spine CT 10/21/18 21:10 CONCLUSION: 1. No acute fracture or subluxation. 2. Degenerative spondylosis of the lower cervical spine. Chest X-Ray 10/21/18 21:10 CONCLUSION: Mild bibasilar atelectasis. Head CT 10/21/18 21:10 CONCLUSION: 1. Senescent changes with mild to moderate small vessel ischemic white matter demyelination. 2. No acute intracranial abnormality. . Discharge Plan Discharge Disposition Patient Disposition: Discharge Home Discharge Condition Condition: Stable Discharge Order Discharge Orders: Discharge Order (Routine); Ordered 10/23/18 Ordered By: Casper Currie Discharge Details Anticipated Discharge Date: 10/23/18 Physicians Team Primary Care Provider: [facility] Attending Provider: Casper Currie Other Providers: Bryce Nguyen Rxs /Orders / Referrals /Forms Prescriptions: Continue latanoprost 0.005 % Drops 1 drp OPHTHALMIC (EYE) QPM RF: 0 metoprolol succinate 50 mg Tablet Extended Release 24 Hr 50 mg PO DAILY RF: 0 isosorbide mononitrate 30 mg Tablet Extended Release 24 Hr 30 mg PO DAILY RF: 0 clopidogrel [Plavix] 75 mg Tablet 75 mg PO DAILY RF: 0 aspirin [Aspirin Low Dose] 81 mg Tablet,Delayed Release (Dr/Ec) 81 mg PO DAILY RF: 0 simvastatin 40 mg Tablet 40 mg PO QPM RF: 0 levothyroxine [Synthroid] 75 mcg Tablet 75 mcg PO DAILY RF: 0 calcium carbonate [Calcium 600] 600 mg calcium (1,500 mg) Tablet 600 mg PO EVERY OTHER DAY RF: 0 timolol 0.5 % Drops 1 drp OPHTHALMIC (EYE) BID RF: 0 ranitidine HCl 150 mg Tablet 300 mg PO DAILY RF: 0 ramipril 2.5 mg Capsule 2.5 mg PO DAILY RF: 0 nitroglycerin [Nitrostat] 0.4 mg Tablet, Sublingual 0.4 mg SUBLINGUAL Q5-15M PRN (Reason: Chest Pain) RF: 0 insulin aspart U-100 [Novolog PenFill U-100 Insulin] 100 unit/mL Cartridge 1 sliding scale dose SUBCUT UD RF: 0 [id number] fum [Multi Vitamin] 9 mg iron/15 mL Liquid RF: 0 Referrals: [facility] [Primary Care Provider] - See Instructions Discharge Instructions Additional Instructions: You were transferred to this hospital from a different hospital for neurosurgical evaluation because of a small bleed around the brain(subarachnoid bleed) which occurred after you passed out and fell. CT scan of head done here showed resolution of the bleed. You did not need any neurosurgical intervention. It is unclear what caused you to pass out. You were monitored uneventfully on telemetry while here, your ECG was unremarkable. There is concern that you may be getting abnormal heart rhythms, and you will need to have a heart event monitor over a period of time to check for this. You prefer to discuss this with your laser beam cutter. Continue your usual medication as prescribed. Follow up with your laser beam cutter within 1-2 weeks. Status ED Status: Left Department
[2018-10-23] MEDS: Ramipril 2.5 MG Capsule PO SCH (10:19)
[2018-10-23] MEDS: Isosorbide Mononitrate 30 MG ER 24HR Tablet (Imdur) PO SCH (10:19)
[2018-10-23] MEDS: Famotidine 20 MG Tablet PO SCH (10:20)
[2018-10-23] MEDS: Timolol 0.5% Drops 5 ML Bottle EACH EYE SCH (10:23)
[2018-10-23] MEDS: Sod Chloride 0.9% Inj 1,000 ML IV.CONT SCH (10:26)
--- NOTE | 2018-10-23 11:19 | ECHRPT ---
Indication: CONCLUSIONS Normal LV size and function. trace mitral regurgitation. Mild dilitation of left atrium BP: / HR: Rhythm: MEASUREMENTS (Male / Female) Normal Values Technical Quality:Fair 2D ECHO LV Diastolic Diameter PLAX 4.1 cm 4.2 - 5.9 / 3.9 - 5.3 cm LV Systolic Diameter PLAX 2.2 cm IVS Diastolic Thickness 0.9 cm 0.6 - 1.0 / 0.6 - 0.9 cm LVPW Diastolic Thickness 0.9 cm 0.6 - 1.0 / 0.6 - 0.9 cm LV Relative Wall Thickness 0.4 RV Internal Dim ED PLAX 3.0 cm LVOT Diameter 1.8 cm Aortic Root Diameter 2.6 cm LA Systolic Diameter LX 3.9 cm 3.0 - 4.0 / 2.7 - 3.8 cm DOPPLER AV Peak Velocity 162.0 cm/s AV Peak Gradient 10.5 mmHg LVOT Peak Velocity 104.0 cm/s LVOT Peak Gradient 4.3 mmHg AV Area Cont Eq pk 1.6 cm Mitral E Point Velocity 98.7 cm/s Mitral A Point Velocity 84.4 cm/s Mitral E to A Ratio 1.2 LV E' Lateral Velocity 11.7 cm/s Mitral E to LV E' Lateral Ratio 8.4 LV E' Septal Velocity 7.0 cm/s Mitral E to LV E' Septal Ratio 14.1 TR Peak Velocity 231.0 cm/s TR Peak Gradient 21.3 mmHg Right Atrial Pressure 10.0 mmHg Pulmonary Artery Systolic Pressu 31.3 mmHg Right Ventricular Systolic Press 31.3 mmHg PV Peak Velocity 99.1 cm/s PV Peak Gradient 3.9 mmHg FINDINGS LEFT VENTRICLE Normal left ventricular size. Wall thickness is normal. The left ventricular systolic function is normal with an estimated ejection fraction in the range of 55-60%. RIGHT VENTRICLE Normal right ventricular size and systolic function. LEFT ATRIUM The left atrial size is mildly dilated. RIGHT ATRIUM The right atrial size is normal. ATRIAL SEPTUM Normal atrial septal thickness without atrial level shunting by limited color doppler interrogation. AORTA The aortic root and proximal ascending aorta are normal in size on limited imaging. MITRAL VALVE Trace mitral valve regurgitation. Mitral annular calcification is present. AORTIC VALVE Trileaflet aortic valve. Aortic valve sclerosis is present. TRICUSPID VALVE There is trace tricuspid valve regurgitation. The estimated pulmonary arterial pressure is 31 mmHg. PULMONARY VALVE Trivial pulmonary valve regurgitation. VESSELS The inferior vena cava is normal in size. PERICARDIUM No pericardial effusion. Federico Posada MD, FACC (Electronically Signed) Final Date:23 October 2018 11:19
[2018-10-23 13:52] VITALS: BP 152/54; RESP 14; TEMP 98.4; O2SAT 96
[2018-10-23 15:50] VITALS: PULSE 65
== END 2018-10-23 17:55 | disposition home or self-care (01) | DRG 86 ==
LOC: NEPC 20:41 → NEDA 20:41 → NEDH 10-22 06:12 → N03 10-22 08:56
PROVIDERS: ADMIT Hospitalist; ATTEND Hospitalist
CPT/HCPCS: 70450; 71010; 71045; 72125; 80048; 80053; 82550; 82552; 82948; 82962; 84484; 85025; 85610; 85730; 86850; 86900; 86901; 90761; 90774; 90775; 90784; 93005; 93306; 96361; 96374; 96375; 97162; 99285; C8952; J1815; J2270; J2405; J7030; J7040; L0150